=== PATIENT | male | born 1985 | race Caucasian/White ===

== ENCOUNTER 2023-12-29 03:20 | Inpatient (IN) | payer OTHER, MEDICAID ==
[~2023-12-29] VITALS: Ht 167.6 cm; Wt 143.8 kg
[2023-12-29] VITALS (18 sets, daily range): BP systolic 96–148; BP diastolic 49–90; PULSE 66–98; RESP 12–26; TEMP 96.6–98.1; O2SAT 94–100
[~2023-12-29 03:20] MED LIST: ASCO500T95 PO; BLOO1EAC40 MC; CETI10SG1 PO; FLUT1DSK IH; INSU100S22 SUBQ; LANC-486 TP; PRON INH; VIT1TAB10 PO; VITD400 PO; [UNRECOGNIZED DRUG - CODE] MC; test strip FS
[2023-12-29] MEDS: NACL 0.9% 1,000 ML IV ONE ×3 (03:40→06:14)
[2023-12-29] MEDS: ONDANSETRON 4 MG/2 ML VIAL IVP ONE (03:40)
[2023-12-29 04:32] LABS: APPEARANCE,URINE CLEAR (CLEAR); BILIRUBIN,URINE NEGATIVE (NEGATIVE); BLOOD, URINE 2+ (NEGATIVE); COLOR,URINE YELLOW (YELLOW); LEUKOCYTE ESTERASE ,URINE NEGATIVE (NEGATIVE); NITRITE, URINE NEGATIVE (NEGATIVE); PROTEIN,URINE 1+ (NEGATIVE); UGLUCOSE 3+ (NEGATIVE); UROBILINOGEN,URINE 0.2 EU/dL (0.2 - 1)
[2023-12-29] MEDS: MORPHINE SULFATE 4 MG/ML SYR IVP ONE (04:46)
[2023-12-29 04:47] LABS: BACTERIA,URINE 10-30 (MOD) /HPF (None Seen); MUCUS,URINE 1+ /LPF (None Seen); SQUAMOUS EPITHELIAL CELL,UR 0-3 (FEW) /LPF (0-3 (FEW)); WBC,URINE 0-5 /HPF (0-5)
[2023-12-29] MEDS ORDERED: ONDANSETRON 4 MG/2 ML VIAL ONE (04:50)
[2023-12-29 04:54] LABS: BASOPHILS # (AUTO) 0.1 K/uL (0.00-0.22); BASOPHILS % (AUTO) 0.6 % (0.0-2.0); EOSINOPHILS # (AUTO) 0.1 K/uL (0-0.4); EOSINOPHILS % (AUTO) 1.3 % (0.0-4.0); HEMATOCRIT 48.5 % (36-52); HEMOGLOBIN 15.3 g/dL (12.0-18.0); LYMPHOCYTES # (AUTO) 0.8 K/uL (2.0-11.5); LYMPHOCYTES % (AUTO) 7.6 % (20.5-51.1); MEAN CORPUSCULAR HEMOGLOBIN 26 pg (27-31); MEAN CORPUSCULAR HGB CONC 32 g/dL (33-37); MEAN CORPUSCULAR VOLUME 83.4 fL (80-94); MONOCYTES # (AUTO) 0.4 K/uL (0.8-1.0); MONOCYTES % (AUTO) 4.5 % (1.7-9.3); NEUTROPHILS # (AUTO) 8.6 K/uL (1.8-7.7); PLATELET COUNT (AUTO) 239 K/uL (140-450); RED BLOOD CELL COUNT(AUTO) 5.82 MIL/uL (4.20-6.10); RED CELL DISTRIBUTION WIDTH 16.5 % (11.6-13.7)
[2023-12-29 05:08] LABS: ANION GAP 16.5 (8-16); CARBON DIOXIDE 22.4 mmol/L (21-32); POTASSIUM 3.9 mmol/L (3.5-5.1)
[2023-12-29 05:11] LABS: MAGNESIUM 2.2 mg/dL (1.8-2.4); PHOSPHORUS 4.7 mg/dL (2.5-4.9)
[2023-12-29 05:16] LABS: CREATININE 4.7 mg/dL (0.6-1.3)
[2023-12-29] MEDS: MORPHINE SULFATE 4 MG/ML SYR ONE (05:18)
[2023-12-29] MEDS: INSULIN REGULAR, HUMAN 100 UNIT in NACL 0.9% 100 ML IV SCH ×2 (05:59→12:45)
[2023-12-29] MEDS ORDERED: cefTRIAXone 1,000 MG VIAL ONE (06:09)
[2023-12-29] MEDS: KCL 20 MEQ IN 100 mL PREMIX 100 ML IV ONE (06:15)
[2023-12-29] MEDS: BLOOD GLUCOSE MONITORING 1 DEV DEV FS SCH (08:00)
[2023-12-29 08:41] LABS: ANION GAP 17.8 (8-16); CALCIUM 8.5 mg/dL (8.5-10.1); CARBON DIOXIDE 17.1 mmol/L (21-32); POTASSIUM 3.9 mmol/L (3.5-5.1)
[2023-12-29 08:47] LABS: CREATININE 4.3 mg/dL (0.6-1.3)
[2023-12-29] MEDS ORDERED: ACETAMINOPHEN 325 MG TAB PO PRN (09:15)
[2023-12-29] MEDS ORDERED: ONDANSETRON 4 MG/2 ML VIAL IVP PRN (09:15)
[2023-12-29] MEDS ORDERED: POTASSIUM CHLORIDE 10 MEQ TABER PO PRN (09:15)
[2023-12-29] MEDS ORDERED: MAG SULF 2000 MG/WATER PREMIX 50 ML IV PRN (09:15)
[2023-12-29] MEDS ORDERED: POLYETHYLENE GLYCOL 17 GM/PKT PO PRN (09:15)
[2023-12-29] MEDS ORDERED: MELATONIN 3 MG TAB PO PRN (09:15)
[2023-12-29] MEDS ORDERED: HYDROcodone/APAP 5/325 MG 1 TAB TAB PO PRN (09:15)
[2023-12-29] MEDS: NACL 0.9% 1,000 ML IV SCH (10:45)
[2023-12-29] MEDS: MORPHINE SULFATE 2 MG/ML SYR IVP PRN (10:46)
[2023-12-29 12:32] LABS: ANION GAP 17.6 (8-16); CALCIUM 8.8 mg/dL (8.5-10.1); CARBON DIOXIDE 16.7 mmol/L (21-32); POTASSIUM 3.3 mmol/L (3.5-5.1)
[2023-12-29 12:33] LABS: CREATININE 4.2 mg/dL (0.6-1.3)
[2023-12-29] MEDS: KCL 20 MEQ IN 100 mL PREMIX 100 ML IV PRN (13:04)
[2023-12-29] MEDS: DEXT 5% / NACL 0.45% 1,000 ML IV SCH (14:30)
[2023-12-29 17:16] LABS: ANION GAP 14.7 (8-16); CALCIUM 8.5 mg/dL (8.5-10.1); CARBON DIOXIDE 22.2 mmol/L (21-32)
[2023-12-29 17:25] LABS: CREATININE 4.3 mg/dL (0.6-1.3); POTASSIUM 2.9 mmol/L (3.5-5.1)
[2023-12-29 20:07] LABS: ANION GAP 15.8 (8-16); CALCIUM 8.6 mg/dL (8.5-10.1); CARBON DIOXIDE 17.6 mmol/L (21-32); POTASSIUM 3.4 mmol/L (3.5-5.1)
[2023-12-29 20:10] LABS: CREATININE 4.3 mg/dL (0.6-1.3)
[2023-12-29 21:24] LABS: MAGNESIUM 2.2 mg/dL (1.8-2.4); PHOSPHORUS 4.6 mg/dL (2.5-4.9)
[2023-12-29] MEDS: KCL 20 MEQ IN 100 mL PREMIX 100 ML IV SCH (21:26)
[2023-12-30] VITALS (24 sets, daily range): BP systolic 119–159; BP diastolic 67–94; PULSE 70–91; RESP 12–20; TEMP 97.3–98.3; O2SAT 97–100
[2023-12-30 00:31] LABS: CALCIUM 8.6 mg/dL (8.5-10.1); CARBON DIOXIDE 21.9 mmol/L (21-32)
[2023-12-30 00:35] LABS: CREATININE 4.3 mg/dL (0.6-1.3); POTASSIUM 2.9 mmol/L (3.5-5.1)
[2023-12-30 04:20] LABS: BASOPHILS % (AUTO) 0.2 % (0.0-2.0); EOSINOPHILS # (AUTO) 0.3 K/uL (0-0.4); EOSINOPHILS % (AUTO) 2.2 % (0.0-4.0); HEMATOCRIT 44.7 % (36-52); HEMOGLOBIN 14.7 g/dL (12.0-18.0); LYMPHOCYTES # (AUTO) 1.5 K/uL (2.0-11.5); MEAN CORPUSCULAR HEMOGLOBIN 26 pg (27-31); MEAN CORPUSCULAR HGB CONC 33 g/dL (33-37); MEAN CORPUSCULAR VOLUME 78.8 fL (80-94); MONOCYTES # (AUTO) 1.3 K/uL (0.8-1.0); MONOCYTES % (AUTO) 9.9 % (1.7-9.3); NEUTROPHILS # (AUTO) 10.4 K/uL (1.8-7.7); NEUTROPHILS % (AUTO) 76.7 % (42.2-75.2); PLATELET COUNT (AUTO) 204 K/uL (140-450); RED BLOOD CELL COUNT(AUTO) 5.68 MIL/uL (4.20-6.10); RED CELL DISTRIBUTION WIDTH 16.1 % (11.6-13.7); WHITE BLOOD COUNT (AUTO) 13.6 K/uL (4.8-10.8)
[2023-12-30 05:07] LABS: ALBUMIN 2.1 g/dL (3.4-5.0); ANION GAP 16.6 (8-16); CALCIUM 8.4 mg/dL (8.5-10.1); CARBON DIOXIDE 20.5 mmol/L (21-32); MAGNESIUM 2.1 mg/dL (1.8-2.4); POTASSIUM 3.1 mmol/L (3.5-5.1); TOTAL BILIRUBIN 0.3 mg/dL (0.0-1.0); TOTAL PROTEIN, SERUM 7.1 g/dL (6.4-8.2)
[2023-12-30 05:16] LABS: CREATININE 4.4 mg/dL (0.6-1.3)
[2023-12-30 08:49] LABS: ANION GAP 13.7 (8-16); CALCIUM 8.4 mg/dL (8.5-10.1); CARBON DIOXIDE 22.3 mmol/L (21-32)
[2023-12-30 08:51] LABS: CREATININE 4.3 mg/dL (0.6-1.3)
[2023-12-30] MEDS ORDERED: KCL 20 MEQ IN 100 mL PREMIX 100 ML IV SCH (09:00)
[2023-12-30] MEDS: POTASSIUM CHLORIDE 40 MEQ, LIDOCAINE 1% 25 MG in NACL 0.9% 250 ML IV ONE (10:00)
[2023-12-30 12:47] LABS: ANION GAP 15.4 (8-16); CALCIUM 8.4 mg/dL (8.5-10.1); CARBON DIOXIDE 18.9 mmol/L (21-32); POTASSIUM 3.3 mmol/L (3.5-5.1)
[2023-12-30 12:54] LABS: CREATININE 4.2 mg/dL (0.6-1.3)
[2023-12-30 17:58] LABS: ANION GAP 11.8 (8-16); CALCIUM 7.9 mg/dL (8.5-10.1); CARBON DIOXIDE 18.8 mmol/L (21-32); POTASSIUM 3.6 mmol/L (3.5-5.1)
[2023-12-30 18:03] LABS: CREATININE 4.2 mg/dL (0.6-1.3)
[2023-12-30 22:37] LABS: ANION GAP 15.6 (8-16); CALCIUM 8.3 mg/dL (8.5-10.1); CARBON DIOXIDE 18.4 mmol/L (21-32)
[2023-12-30 22:38] LABS: CREATININE 4.2 mg/dL (0.6-1.3)
[2023-12-31] VITALS (21 sets, daily range): BP systolic 116–169; BP diastolic 69–102; PULSE 74–95; RESP 13–27; TEMP 97.1–98.3; O2SAT 96–99
[2023-12-31 02:33] LABS: ANION GAP 16.6 (8-16); CALCIUM 8.3 mg/dL (8.5-10.1); CARBON DIOXIDE 19.2 mmol/L (21-32); POTASSIUM 3.8 mmol/L (3.5-5.1)
[2023-12-31 02:34] LABS: CREATININE 4.1 mg/dL (0.6-1.3)
[2023-12-31 06:55] LABS: ANION GAP 18.9 (8-16); CALCIUM 8.1 mg/dL (8.5-10.1); POTASSIUM 3.9 mmol/L (3.5-5.1)
[2023-12-31 06:56] LABS: MAGNESIUM 1.8 mg/dL (1.8-2.4); PHOSPHORUS 3.7 mg/dL (2.5-4.9); TOTAL PROTEIN, SERUM 6.9 g/dL (6.4-8.2)
[2023-12-31 07:31] LABS: TOTAL BILIRUBIN 0.4 mg/dL (0.0-1.0)
[2023-12-31] MEDS: INSULIN LANTUS 100 UNITS/ML 10 ML VIAL SUBQ SCH ×2 (12:31→20:24)
[2023-12-31 12:37] LABS: BASOPHILS % (AUTO) 0.5 % (0.0-2.0); EOSINOPHILS # (AUTO) 0.3 K/uL (0-0.4); EOSINOPHILS % (AUTO) 4.2 % (0.0-4.0); HEMATOCRIT 40.1 % (36-52); HEMOGLOBIN 13.3 g/dL (12.0-18.0); LYMPHOCYTES # (AUTO) 0.7 K/uL (2.0-11.5); LYMPHOCYTES % (AUTO) 10.1 % (20.5-51.1); MEAN CORPUSCULAR HEMOGLOBIN 26 pg (27-31); MEAN CORPUSCULAR HGB CONC 33 g/dL (33-37); MEAN CORPUSCULAR VOLUME 78.7 fL (80-94); MONOCYTES # (AUTO) 0.6 K/uL (0.8-1.0); MONOCYTES % (AUTO) 7.9 % (1.7-9.3); NEUTROPHILS # (AUTO) 5.7 K/uL (1.8-7.7); NEUTROPHILS % (AUTO) 77.3 % (42.2-75.2); PLATELET COUNT (AUTO) 173 K/uL (140-450); RED BLOOD CELL COUNT(AUTO) 5.09 MIL/uL (4.20-6.10); RED CELL DISTRIBUTION WIDTH 16.3 % (11.6-13.7); WHITE BLOOD COUNT (AUTO) 7.4 K/uL (4.8-10.8)
[2023-12-31 12:50] LABS: ANION GAP 14.6 (8-16); CALCIUM 8.1 mg/dL (8.5-10.1); CARBON DIOXIDE 18.7 mmol/L (21-32); CREATININE 3.8 mg/dL (0.6-1.3); POTASSIUM 3.3 mmol/L (3.5-5.1)
[2023-12-31] MEDS: NACL 0.45% 1,000 ML IV SCH (14:55)
[2023-12-31] MEDS: BLOOD GLUCOSE MONITORING 1 DEV DEV FS SCH (17:45)
[2023-12-31] MEDS: INSULIN LISPRO SLIDING SCALE 100 UNITS/ML VIAL SUBQ PRN (17:49)
[2024-01-01] VITALS (15 sets, daily range): BP systolic 129–154; BP diastolic 77–105; PULSE 67–99; RESP 12–24; TEMP 97–98.1; O2SAT 95–99
[2024-01-01 05:53] LABS: BASOPHILS % (AUTO) 0.3 % (0.0-2.0); EOSINOPHILS # (AUTO) 0.4 K/uL (0-0.4); EOSINOPHILS % (AUTO) 5.2 % (0.0-4.0); HEMATOCRIT 41.5 % (36-52); HEMOGLOBIN 13.7 g/dL (12.0-18.0); LYMPHOCYTES # (AUTO) 0.9 K/uL (2.0-11.5); LYMPHOCYTES % (AUTO) 11.1 % (20.5-51.1); MEAN CORPUSCULAR HEMOGLOBIN 26 pg (27-31); MEAN CORPUSCULAR HGB CONC 33 g/dL (33-37); MEAN CORPUSCULAR VOLUME 79.4 fL (80-94); MONOCYTES # (AUTO) 0.6 K/uL (0.8-1.0); MONOCYTES % (AUTO) 8.2 % (1.7-9.3); NEUTROPHILS # (AUTO) 5.8 K/uL (1.8-7.7); NEUTROPHILS % (AUTO) 75.2 % (42.2-75.2); PLATELET COUNT (AUTO) 179 K/uL (140-450); RED BLOOD CELL COUNT(AUTO) 5.22 MIL/uL (4.20-6.10); RED CELL DISTRIBUTION WIDTH 16.3 % (11.6-13.7); WHITE BLOOD COUNT (AUTO) 7.7 K/uL (4.8-10.8)
[2024-01-01 06:43] LABS: ALBUMIN 2.1 g/dL (3.4-5.0); ANION GAP 15.1 (8-16); CALCIUM 8.1 mg/dL (8.5-10.1); CARBON DIOXIDE 18.9 mmol/L (21-32); CREATININE 3.8 mg/dL (0.6-1.3); MAGNESIUM 1.7 mg/dL (1.8-2.4); PHOSPHORUS 3.7 mg/dL (2.5-4.9); TOTAL BILIRUBIN 0.4 mg/dL (0.0-1.0); TOTAL PROTEIN, SERUM 6.8 g/dL (6.4-8.2)
[2024-01-01] MEDS: ALBUTEROL SULFATE/IPRATROPIU 3 ML SOL IH PRN (08:36)
[2024-01-01] MEDS: PANTOPRAZOLE 40 MG TABEC PO SCH (09:07)
[2024-01-01] MEDS: amLODIPine 5 MG TAB PO SCH (09:08)
[2024-01-01] MEDS ORDERED: INSULIN LANTUS 100 UNITS/ML 10 ML VIAL SUBQ SCH ×3 (11:05→21:00)
[2024-01-01] MEDS ORDERED: INSU100S22 SUBQ (11:15)
[2024-01-01] MEDS ORDERED: AMLO-3 PO (11:15)
[2024-01-01] MEDS: INSULIN LANTUS 100 UNITS/ML 10 ML VIAL SUBQ SCH (12:10)
[2024-01-01] MEDS ORDERED: HUM SUBQ (13:16)
== END 2024-01-01 16:20 | disposition home or self-care (01) | DRG 637 ==
LOC: MED 03:20 → MIC 05:53 → MMU 05:53 → MIC 07:40
PROVIDERS: ADMIT Family Medicine; ATTEND Family Medicine
DX: E11.10 Type 2 diabetes mellitus with ketoacidosis without coma (principal); E43 Unspecified severe protein-calorie malnutrition; R65.11 Systemic inflammatory response syndrome (SIRS) of non-infectious origin with acute organ dysfunction; N17.9 Acute kidney failure, unspecified; N18.4 Chronic kidney disease, stage 4 (severe); N39.0 Urinary tract infection, site not specified; Z68.43 Body mass index [BMI] 50.0-59.9, adult; E11.22 Type 2 diabetes mellitus with diabetic chronic kidney disease; E87.6 Hypokalemia; I12.9 Hypertensive chronic kidney disease with stage 1 through stage 4 chronic kidney disease, or unspecified chronic kidney disease; E66.01 Morbid (severe) obesity due to excess calories; Z91.199 Patient's noncompliance with other medical treatment and regimen due to unspecified reason; Z79.899 Other long term (current) drug therapy
CPT/HCPCS: 36415; 80048; 80053; 81001; 82043; 82550; 82803; 82948; 83735; 84100; 85025; 87081; 94640; 96361; 96365; 96375; 97116; 97163-GP; 99291; J0696; J1644; J1815; J2001; J2270; J2405; J3475; J3480; J7030; J7060